=== PATIENT | male | born 1995 | race Caucasian/White ===

== ENCOUNTER 2018-04-19 20:10 | Emergency (ER) | payer BC ==
[2018-04-19] MEDS ORDERED: DIPHTH/TETANUS/ACEL. PERTUSSIS IM ONLY ONE (20:30)
--- NOTE | 2018-04-19 20:40 | ER Report ---
History and Physical Time Seen By MD: 20:32 Hx. of Stated Complaint: pt knife slipped and punctured anterior thigh 3pm HPI/ROS CHIEF COMPLAINT: Laceration HISTORY OF PRESENT ILLNESS: 22-year-old male patient presents to emergency room with complaint of laceration to the right anterior thigh. Patient states he was hunting and was skating out his elbow. He states when he developed the knife slipped and cut his thigh. He states that initially didn't think much of it, however he felt blood running down his leg and felt that he should look. He states when he looked and saw the fat tissue that he knew that he come in for evaluation. Patient states is unsure of his last tetanus shot. Patient denies having any weakness or numbness to his leg. Past Medical/Surgical History Patient has a past medical history of leg fracture, pelvis fracture, alcohol use. Patient has a surgical history of right leg and torn groin muscle repair. Reviewed Nurses Notes: Yes Hx Substance Use Disorder: No Hx Alcohol Use: Yes (every other day ) Constitutional Vital Sign - Last 24 Hours 04/19/18 20:14 Temp 98.8 Pulse 95 Resp 16 B/P (MAP) 117/80 Pulse Ox 96 O2 Delivery Room Air Physical Exam General appearance: Alert no distress. Respiratory: Chest is non tender, lungs are clear to auscultation. Cardiac: Regular rate and rhythm Skin: Patient has a 2 cm laceration to the right anterior thigh, is fairly wide and does go into the subcutaneous tissue. There is no deeper tissues noted to be injured. DIFFERENTIAL DIAGNOSIS: After history and physical exam differential diagnosis was considered for laceration. Medical Decision Making ED Course/Re-evaluation ED Course Patient was admitted in exam room, history and physical were obtained. Differential diagnoses were considered. On examination patient does have a 2 cm laceration to the right anterior thigh. Does go into the subcutaneous tissue. The area was anesthetized, cleaned and repaired described below. Patient tolerated procedure well. We'll go ahead and discharge him home at this time. He is to monitor for signs of infection, he is to keep the wound clean. He is to follow-up with his primary care provider in 7-10 days to have sutures removed. He is return to emergency room with any concerns. Assess this with the patient and his girlfriend they verbalized understanding and agreement with plan. Procedure: Laceration repair. Verbal consent was obtained from the patient. The 2 cm laceration on the right anterior thigh was anesthetized in the usual fashion. The wound was scrubbed, draped and explored to its base with a gloved finger. There were no deep structures involved. No tendon injury was identified. The wound was repaired with one subcuticular suture using 4-0 Ethilon material, 5 simple interrupted sutures using 4-0 Prolene material. The wound repair was intermediate. The procedure was performed by myself. Decision to Disposition Date: Apr 19, 2018 Decision to Disposition Time: 21:11 Depart Departure Latest Vital Signs Vital Signs Date Time Temp Pulse Resp B/P (MAP) Pulse Ox O2 Delivery O2 Flow Rate FiO2 04/19/18 20:14 98.8 95 16 117/80 96 Room Air Impression: Primary Impression: Laceration Condition: Improved Disposition: HOME OR SELF-CARE Patient Instructions: Laceration (ED) Additional Instructions: Keep wound dry for 48 hours. Follow up with your primary care provider in the next 7-10 days to have sutures removed. Monitor for signs of infection; redness, swelling, heat, discharge, increasing pain or red streaking. Take Tylenol or Ibuprofen as needed for pain. Return to the ER with any concerns. You may change dressing as needed. TONY WILKERSON Apr 19, 2018 20:40
== END 2018-04-19 21:20 | disposition home or self-care (01) ==
LOC: ER 20:30
DX: S71.111A Laceration without foreign body, right thigh, initial encounter (principal)
CPT/HCPCS: 90471; 90715; 99283